=== PATIENT | female | born 1940 | race Caucasian/White ===

== ENCOUNTER → 2016-07-22 | Outpatient (CLI) | payer MEDICARE | LOC: LAB.O 09:29 | PROVIDERS: ATTEND Nurse Practitioner Family | DX: I10 Essential (primary) hypertension (principal); E78.5 Hyperlipidemia, unspecified; M10.9 Gout, unspecified; R73.09 Other abnormal glucose; R53.83 Other fatigue; Z86.73 Personal history of transient ischemic attack (TIA), and cerebral infarction without residual deficits ==

== ENCOUNTER → 2016-08-23 | Outpatient (CLI) | payer MEDICARE | END | disposition home or self-care (01) | LOC: YCFC.O 09:27 | PROVIDERS: ATTEND Nurse Practitioner Family | DX: E78.5 Hyperlipidemia, unspecified (principal) ==

== ENCOUNTER → 2016-09-16 | Outpatient (CLI) | payer MEDICARE | END | disposition home or self-care (01) | LOC: YCFC.O 11:38 | PROVIDERS: ATTEND Nurse Practitioner Family | DX: N39.3 Stress incontinence (female) (male) (principal) ==

== ENCOUNTER → 2016-10-18 | Outpatient (CLI) | payer MEDICARE | END | disposition home or self-care (01) | LOC: LAB 10:41 | PROVIDERS: ATTEND Nurse Practitioner Family | DX: E03.9 Hypothyroidism, unspecified (principal) ==

== ENCOUNTER → 2016-12-06 | Outpatient (CLI) | payer MEDICARE ==
--- NOTE | 2016-12-07 21:15 | RAD ---
EXAM DESCRIPTION: Chest,2 Views CLINICAL HISTORY: 76 years Female R/O HEART FAILURE precordial chest wall pain COMPARISON: None available FINDINGS: The cardiomediastinal silhouette appears unremarkable. No consolidating infiltrates or pleural effusions. No pneumothorax. There is no evidence of central pulmonary vascular congestion or evidence to suggest pulmonary edema IMPRESSION: No acute abnormality is identified. Electronically signed by: Roshni Sofia 12/07/2016 9:16 PM CDT
== END | disposition home or self-care (01) ==
LOC: YCFC.O 16:11
PROVIDERS: ATTEND Nurse Practitioner Family
DX: R60.0 Localized edema (principal); R06.09 Other forms of dyspnea; R00.1 Bradycardia, unspecified

== ENCOUNTER → 2016-12-07 | Outpatient (CLI) | payer MEDICARE | LOC: YCFC.O 13:08 | PROVIDERS: ATTEND Nurse Practitioner Family | DX: R06.09 Other forms of dyspnea (principal); R00.1 Bradycardia, unspecified; R60.0 Localized edema ==

== ENCOUNTER → 2017-05-05 | Outpatient (CLI) | payer MEDICARE | END | disposition home or self-care (01) | LOC: RESP 10:09 | PROVIDERS: ATTEND Physician Assistant | DX: R00.1 Bradycardia, unspecified (principal) ==

== ENCOUNTER → 2017-05-29 | Outpatient (CLI) | payer MEDICARE | LOC: YCFC.O 13:30 | PROVIDERS: ATTEND Nurse Practitioner Family | DX: E03.9 Hypothyroidism, unspecified (principal); E78.5 Hyperlipidemia, unspecified; I10 Essential (primary) hypertension; R53.83 Other fatigue; D50.9 Iron deficiency anemia, unspecified ==

== ENCOUNTER → 2017-09-14 | Outpatient (CLI) | payer MEDICARE | LOC: LAB.O 12:38 | PROVIDERS: ATTEND Nurse Practitioner Family | DX: R06.02 Shortness of breath (principal); R60.0 Localized edema ==

== ENCOUNTER → 2018-05-29 | Outpatient (CLI) | payer MEDICARE | LOC: LAB.O 09:17 | PROVIDERS: ATTEND Nurse Practitioner Family | DX: E03.9 Hypothyroidism, unspecified (principal) ==

== ENCOUNTER → 2019-06-07 | Outpatient (CLI) | payer MEDICARE | LOC: YCFC.O 11:54 | PROVIDERS: ATTEND Nurse Practitioner | DX: E03.9 Hypothyroidism, unspecified (principal) ==

== ENCOUNTER → 2019-08-16 | Outpatient (CLI) | payer MEDICARE | LOC: YCFC.O 10:55 | PROVIDERS: ATTEND Family Medicine | DX: I10 Essential (primary) hypertension (principal); E78.5 Hyperlipidemia, unspecified; E03.9 Hypothyroidism, unspecified ==

== ENCOUNTER → 2019-11-19 | Outpatient (CLI) | payer MEDICARE | LOC: YCFC.O 10:50 | PROVIDERS: ATTEND Family Medicine | DX: E03.9 Hypothyroidism, unspecified (principal) ==

== ENCOUNTER → 2020-04-01 | Outpatient (CLI) | payer MEDICARE | LOC: YCFC.O 15:13 | PROVIDERS: ATTEND Family Medicine | DX: Z11.59 Encounter for screening for other viral diseases (principal) ==